=== PATIENT | male | born 1965 ===

== ENCOUNTER 2017-02-10 10:48 | Emergency (ER) | payer BC ==
[2017-02-10 10:52] VITALS: BP 133/82; PULSE 61; RESP 18; TEMP 98.3; O2SAT 99
--- NOTE | 2017-02-10 11:41 | ED PDOC ---
HPI: Back Time Seen by Provider: 02/10/17 11:30 Chief Complaint (Nursing): Back Pain Chief Complaint (Provider): Back Pain History Per: Patient History/Exam Limitations: no limitations Current Symptoms Are (Timing): Still Present Additional Complaint(s): 51 y/o male presents to the emergency department with a complaint of a right lower back pain since 02/07/2017. Describes pain radiates down to the right leg. Reports taking Tylenol yesterday without the relief of pain. States he was lifting heavy boxes on Wednesday which initiated pain but then began to increase as he continued working. Denies numbness, tingling, constipation, problems with urination, chest pain, nausea, vomiting, diarrhea, fever, or chills. Past Medical History Reviewed: Historical Data, Nursing Documentation, Vital Signs Vital Signs: Last Vital Signs Temp 98.3 F 02/10/17 10:51 Pulse 61 02/10/17 10:51 Resp 18 02/10/17 10:51 BP 133/82 02/10/17 10:51 Pulse Ox 99 02/10/17 10:51 - Medical History PMH: Back Problems, Kidney Stones, Chronic Kidney Disease - Surgical History Surgical History: No Surg Hx - Family History Family History: States: Unknown Family Hx - Living Arrangements Living Arrangements: With Family - Social History Alcohol: None Drugs: Denies - Home Medications Home Medications: Ambulatory Orders Medication Instructions Recorded Ibuprofen [Motrin] 600 mg PO TID 7 Days 02/10/17 - Allergies Allergies/Adverse Reactions: Allergies Allergy/AdvReac Type Severity Reaction Status Date / Time No Known Allergies Allergy Verified 02/10/17 11:00 Review of Systems ROS Statement: Except As Marked, All Systems Reviewed And Found Negative Constitutional: Negative for: Fever, Chills Cardiovascular: Negative for: Chest Pain Gastrointestinal: Negative for: Nausea, Vomiting, Diarrhea, Constipation Genitourinary Male: Negative for: Dysuria, Frequency, Incontinence, Hematuria Musculoskeletal: Positive for: Back Pain (Right lower region) Neurological: Negative for: Numbness (or tingling) Physical Exam - Reviewed Nursing Documentation Reviewed: Yes Vital Signs Reviewed: Yes - Physical Exam Appears: Positive for: Non-toxic, No Acute Distress Head Exam: Positive for: ATRAUMATIC, NORMAL INSPECTION, NORMOCEPHALIC Skin: Positive for: Normal Color, Warm, Dry Neck: Positive for: Normal, Supple Cardiovascular/Chest: Positive for: Regular Rate, Rhythm. Negative for: Murmur Respiratory: Positive for: Normal Breath Sounds. Negative for: Accessory Muscle Use, Respiratory Distress Gastrointestinal/Abdominal: Positive for: Normal Exam, Bowel Sounds, Soft. Negative for: Tenderness Back: Positive for: Other (Mild tenderness to the right lower back). Negative for: Normal Inspection Extremity: Positive for: Normal ROM, Other (Straight leg positive at 30 degrees of the right leg). Negative for: Tenderness, Pedal Edema Neurologic/Psych: Positive for: Alert, Oriented (x3) - ECG O2 Sat by Pulse Oximetry: 99 (RA) Pulse Ox Interpretation: Normal - Radiology X-Ray: Read By Radiologist X-Ray Interpretation: No Acute Disease - Progress ED Course And Treament: 1313: Stable. AAOx3. Back pain improved. Fu with pcp. Medical Decision Making Medical Decision Making: Time: 11:35 Initial impression: Right-sided back pain Initial plan: --Lumbar Spine x-ray --Toradol 15 mg IV --Reevaluation Time: 12:32 --Lumbar x-ray FINDINGS: BONES: No acute compression fractures no retropulsed fragments. Vertebral bodies exhibit normal stature. . Minimal posterior subluxation four over L5 Vertebral bodies otherwise normally aligned. Mid. DISC SPACES: Mild disc space narrowing more so along the posterior disc margin L5-S1 and to a L4-L5 levels. . Facet joints are hypertrophic L5-S1 and less so the L4-L5 levels OTHER FINDINGS: None. IMPRESSION: No acute fractures. Minor multilevel degenerative spondylosis as above Scribe Attestation: Documented by Maci Matamoros, acting as a scribe for Dylan Vegas MD. Provider Scribe Attestation: All medical record entries made by the Scribe were at my direction and personally dictated by me. I have reviewed the chart and agree that the record accurately reflects my personal performance of the history, physical exam, medical decision making, and the department course for this patient. I have also personally directed, reviewed, and agree with the discharge instructions and disposition. Disposition - Clinical Impression Clinical Impression: Low back pain - Patient ED Disposition Is Patient to be Admitted: No Counseled Patient/Family Regarding: Studies Performed, Diagnosis, Need For Followup, Rx Given - Disposition Referrals: [facility] [Outside] - 02/11/17 Disposition: Routine/Home Disposition Time: 14:30 Condition: STABLE Additional Instructions: Return if not better in 3 days. Prescriptions: Ibuprofen [Motrin] 600 mg PO TID 7 Days Instructions: Acute Low Back Pain (ED) Forms: [facility] (Serbian), [facility] ED School/Work Excuse
--- NOTE | 2017-02-10 12:33 | RAD ---
PROCEDURE: Radiographs of the Lumbar Spine. HISTORY: back pain COMPARISON: No prior. FINDINGS: BONES: No acute compression fractures no retropulsed fragments. Vertebral bodies exhibit normal stature. . Minimal posterior subluxation four over L5 Vertebral bodies otherwise normally aligned. Mid. DISC SPACES: Mild disc space narrowing more so along the posterior disc margin L5-S1 and to a L4-L5 levels. . Facet joints are hypertrophic L5-S1 and less so the L4-L5 levels OTHER FINDINGS: None. IMPRESSION: No acute fractures. Minor multilevel degenerative spondylosis as above
[2017-02-10] MEDS ORDERED: Oxycodone/Acetaminophen 5/325 mg Tab PO ONE (13:35)
[2017-02-10] MEDS ORDERED: Oxycodone/Acetaminophen 5/325 mg Tab ONE (13:40)
== END 2017-02-10 13:57 | disposition home or self-care (01) ==
LOC: H.ER 10:48
DX: M54.5 Low back pain (principal); Z87.442 Personal history of urinary calculi
CPT/HCPCS: 72114; 96374; 99282; J1885

== ENCOUNTER 2017-09-07 11:37 | Day surgery (SDC) | payer BC ==
[2017-09-07 13:22] VITALS: BMI 25.7
[2017-09-07] MEDS ORDERED: cefTRIAXone (Rocephin) 1 gm Inj ONE ×2 (13:53→15:03)
[2017-09-07] MEDS ORDERED: Propofol 10 mg/ml Inj (20 ML) ONE (14:37)
[2017-09-07] MEDS ORDERED: ePHEDrine 50 mg/ml Inj ONE (14:39)
[2017-09-07] MEDS ORDERED: Sodium Chloride 0.9% 10 ML IV ONE (14:39)
[2017-09-07] MEDS ORDERED: Midazolam 2 MG/2 ML VIAL ONE (14:55)
[2017-09-07] MEDS ORDERED: Iohexol 240 200 ML ONE (15:03)
[2017-09-07] MEDS ORDERED: cefTRIAXone (Rocephin) 1 gm Inj IVPB ONE (15:15)
[2017-09-07] MEDS ORDERED: Oxycodone/Acetaminophen 5/325 mg Tab PO PRN (16:20)
[2017-09-07 16:33] VITALS: RESP 18
--- NOTE | 2017-09-07 16:38 | OP ---
PROCEDURE DATE: 09/07/2017 PREOPERATIVE DIAGNOSES: Acute left renal colic secondary to obstructing left ureteral calculus. PROCEDURE PERFORMED ON THE PATIENT: Cystoscopy with left ureteroscopy, stone basketing, and J-stent placement. DESCRIPTION OF PROCEDURE: Under general anesthesia, the patient was placed in the operating room table in dorsal lithotomy position, the area of the groin was draped and prepped in a sterile manner. At this time, using a short ureteroscope, I entered into the bladder atraumatically, identified the left ureteral orifice and was able to insert the ureteroscope over a floppy-tip guidewire. Once inside the ureter at the lower portion, it was noted to be the obstructing calculus consistent with that, which was seen on the CT scan. I deployed the double helical basket, went beyond the stone, engaged the stone, and removed it completely. I did a second look to the level of renal pelvis. There was no other residual stone noted. At this time, under fluoroscopy, I inserted a 6-[place]ese multi-link double-J stent into good position. Once this was done, the patient was taken from the operating room and the stone was sent for chemical analysis. Deirdre Branham MD
--- NOTE | 2017-09-07 18:32 | RAD ---
PROCEDURE: Intraoperative Fluoroscopy. HISTORY: CYSTO FINDINGS: Fluoroscopic assistance was provided for urological procedure. Please refer to the operative report from ESTEFANY Doty. 0.2 minutes of fluoroscopy time was utilized.
[2017-09-07 19:05] VITALS: BP 110/70; PULSE 71; TEMP 97.9; O2SAT 97
--- NOTE | 2017-09-07 20:42 | CARD ---
APPROVED REPORT EKG Measurement Heart [id number] IL 158P6 [id number] <Conclusion> Normal sinus rhythm Normal ECG
== END 2017-09-07 19:00 | disposition home or self-care (01) ==
LOC: H.OPSURG 11:37
PROVIDERS: ATTEND Urology
DX: N20.0 Calculus of kidney (principal)
CPT/HCPCS: 52320; 52332; 82355; 93005; C1769; C2617; J0696; J1170; J2001; J2250; J2405; J2704; J3010

== ENCOUNTER 2017-09-13 06:20 | Day surgery (SDC) | payer BC ==
[2017-09-13] MEDS ORDERED: Lactated Ringer's 1,000 ML IV ONE ×3 (07:27→07:30)
[2017-09-13] MEDS ORDERED: Lidocaine 2% Jelly (Uro-Jet) ONE (07:35)
[2017-09-13] MEDS ORDERED: cefTRIAXone (Rocephin) 1 gm Inj ONE (07:36)
[2017-09-13] MEDS ORDERED: Propofol 10 mg/ml Inj (20 ML) ONE (08:02)
[2017-09-13] MEDS ORDERED: Midazolam 2 MG/2 ML VIAL ONE (08:02)
[2017-09-13] MEDS ORDERED: HYDROmorphone 0.5 mg/0.5 ml ISec IVP PRN (08:53)
[2017-09-13] MEDS ORDERED: Lactated Ringer's 1,000 ML IV SCH (09:00)
[2017-09-13] MEDS ORDERED: Morphine 4 MG/ML VIAL IVP PRN (09:51)
[2017-09-13] MEDS ORDERED: Morphine 4 MG/ML VIAL ONE (09:55)
[2017-09-13 10:28] VITALS: RESP 18
--- NOTE | 2017-09-13 11:36 | OP ---
PROCEDURE DATE: 09/13/2017 PREOPERATIVE DIAGNOSIS: Post left extracorporeal shock wave lithotripsy with J stent. POSTOPERATIVE DIAGNOSIS: Post left extracorporeal shock wave lithotripsy with J stent. PROCEDURE PERFORMED: Cystoscopy with removal of double-J. DESCRIPTION OF PROCEDURE: Under general anesthesia, the patient placed on the operating table in dorsal lithotomy position. Area of the groin was draped and prepped in a sterile manner. Using a #22 cystoscope, I entered into the bladder atraumatically. At this time, I identified the existing double-J stent using grasping forceps. I engaged it and removed it completely. Both ends were intact. The patient then was taken from the operating room in good condition. Deirdre Branham MD
[2017-09-13 12:35] VITALS: BP 116/65; PULSE 68; TEMP 98; O2SAT 98
== END 2017-09-13 12:00 | disposition home or self-care (01) ==
LOC: H.OPSURG 06:20
PROVIDERS: ATTEND Urology
DX: N20.0 Calculus of kidney (principal)
CPT/HCPCS: 52310; 88304; J0696; J2250; J2270; J2405; J2704; J3010; J7120